=== PATIENT | female | born 1960 | race Caucasian/White ===

== ENCOUNTER → 2020-03-06 13:11 | Outpatient (CLI) | payer OTHER, SELFPAY ==
--- NOTE | ~2020-03-06 | XR_ITS ---
EXAMINATION: XR chest 2V EXAM DATE: 03/06/2020 13:30 INDICATION: R07.81 - Pleurodynia . TECHNIQUE: Frontal and lateral projections of the chest obtained and reviewed. Comparison is made to prior examination from 09/01/2016. FINDINGS: The lungs are clear. There are no pleural effusions. The cardiomediastinal silhouette is within normal limits. There is no pneumothorax suspected. The bones and soft tissues are unremarkab le. IMPRESSION: Unremarkable chest x-ray exam. Reviewed, dictated and finalized at location B. [employer]
== END ==
PROVIDERS: PCP Family Medicine; Visit Provider Nurse Practitioner Family
DX: R07.81 Pleurodynia (principal)
CPT/HCPCS: 71046

== ENCOUNTER 2022-09-10 08:19 | Outpatient (CLI) | payer OTHER, SELFPAY ==
[2022-09-10 08:48] LABS: Hematocrit 42.6 % (37.0-47.0); Hemoglobin 13.9 g/dL (12.0-15.0)
== END 2022-09-10 08:20 | disposition home or self-care (01) ==
LOC: ANHSURGERY 08:25
PROVIDERS: PCP Physician Assistant; Visit Provider Student in an Organized Health Care Education/Training Program
DX: N95.0 Postmenopausal bleeding (principal); Z01.818 Encounter for other preprocedural examination
CPT/HCPCS: 36415; 85014; 85018

== ENCOUNTER 2022-09-16 01:52 | Day surgery (SDC) | payer OTHER, SELFPAY ==
[2022-09-09 13:04] VITALS: BMI 40.1
--- NOTE | 2022-09-09 13:11 | PC.NURSE ---
Addendum entered by She Limon RN 09/15/22 15:13: PT TO ARRIVE AT 0830 ON 09/16/22 FOR SURGERY AT 1030. Original Note: Report to the Outpatient Waiting Room, entrance under the green pavilion located off [facility], at time 11:00 on date 09/17/22. Planned Procedure Time: 1:00. Time changes happen often and if your time is changed the preop area will call you the afternoon before. - You and your visitor will be asked to self-screen and do not enter if you have any COVID symptoms. - A mask is optional within the hospital at this time. Patients may have clear liquids (water, carbonated beverages, clear teas, apple juice) until 3 hours prior to surgery with a maximum of 20 ounces. - No food from midnight until time of surgery Take the following medications with a SIP of water the morning of surgery: NONE DO NOT STOP ANY OF YOUR OTHER PRESCRIPTION MEDICATIONS PRIOR TO SURGERY?EXCEPT THE FOLLOWING Medications to discontinue per physician: VITAMINS Date to take last dose: 09/13/[address] EPSTEIN REGARDING ASPIRIN Please no make-up, nail peruvian, hairspray, perfume, deodorant, or body powder the day of surgery. No jewelry (including any body piercings) or valuables the day of surgery, leave them at home. Please take a shower or bath the night before, or the morning of, surgery with an antibacterial soap. Wear comfortable, loose fitting clothing. - Jewelry must be removed prior to entering the operating room. Rings and piercings that are not removed may be cut off. - The hospital will not accept responsibility for valuables. - Please leave all valuables, including medications, at home the day of surgery. If you are going home after surgery, a licensed power truck driver must drive you home. - NO public transportation without another adult if you receive anesthesia. - We recommend that an adult stay with you for 24 hours following discharge. - We also recommend that you do not drive, make important decision, drink alcoholic beverages, or take any drugs that were not prescribed by your health care provider for at least 24 hours after your discharge time. Follow any additional instructions given to you from your surgeon. If you or anyone in your household have experienced Covid symptoms in the past week, please notify your surgeon or the nurse liaison at the phone number below for possible testing. Telephone instructions given to PT - DELORES CASTRO and asked if any additional questions and then verbalized understanding. Patient advised to call surgeon office or pre surgery nurse liaison [phone] if any additional questions.
--- NOTE | 2022-09-15 15:14 | PC.NURSE ---
Pt states no changes in medications or health history since initial interview. New pre-op instructions reviewed with pt. Pt denies further questions at this time.
--- NOTE | 2022-09-15 17:02 | PM.IMHP ---
H&P: HPI History of Present Illness Date/Time: 09/15/22 17:02 Chief Complaint: postmenopausal bleeding thickened endometrial lining Narrative: 62-year-old female who presents for hysteroscopy D&C for postmenopausal bleeding and thickened endometrial lining. Patient presented to the office after a prolonged episode of postmenopausal bleeding. Patient had pelvic ultrasound which showed thickened endometrial lining. Recommended hysteroscopy D&C for tissue sampling. Review of Systems Review of Systems: All systems reviewed & are unremarkable except as noted in HPI and below PMFSH Past Medical History Medical History Adrenal gland disorder Allergies Asthma BMI 38.0-38.9,adult Surgical History Surgical History H/O colonoscopy 2019 rpt 5 yrs History of carpal tunnel release of both wrists Hx of cataract surgery Family History Family History Mother Family history of diabetes mellitus in first degree relative Hypertension Family history of cardiovascular disease Diabetes mellitus Father Family history of cardiovascular disease, Onset Age: 85 Social History Social History Smoking status: Never smoker Second hand tobacco smoke exposure: No Alcohol intake: never Alcohol use details: occasional Substance use: never Substance use type: does not use Living arrangements: with family Occupation/Education: retired Gender identity (if verbalized by the patient): Female Sexual Orientation (if Verbalized by the Patient): Straight or Heterosexual Spiritual care concerns: No Agree to blood products: Yes Meds Home Medications and Allergies Home Medications Medication Instructions Recorded Confirmed Type atorvastatin 20 mg tablet 20 mg PO HS 08/19/22 09/15/22 History aspirin 81 mg tablet,delayed 81 mg PO DAILY 09/09/22 09/15/22 History release multivitamin 1 tablet PO DAILY 09/09/22 09/15/22 History Allergies Allergy/AdvReac Type Severity Reaction Status Date / Time codeine Allergy Mild Itching Verified 09/15/22 15:13 Exam Const: General: cooperative, healthy appearing, comfortable and no acute distress Chest: Chest palpation & inspection: normal inspection of the chest Resp: Effort & Inspection: normal respiratory effort and able to speak in complete sentences Cardio: Rate: regular rate Rhythm: regular rhythm GI: Inspection: normal to inspection GI Palp: No abdominal tenderness and Yes Soft to palpation Psych: Appearance: grossly normal Mental Status: mental status grossly normal Assessment and Plan Assessment and plan (1) Postmenopausal bleeding: Code(s): N95.0 - Postmenopausal bleeding Status: Acute Assessment and Plan: ?62-year-old female who presents for follow-up regarding postmenopausal bleeding ?? Pelvic ultrasound showed a?new diagnosis of a thickened endometrial lining of 11 mm in the setting of postmenopausal Patient has not had any continued postmenopausal bleeding Given the thickened endometrial lining and age, would recommend tissue sampling ?recommended hysteroscopy, D&C for tissue sampling ?extensive surgical counseling to discuss Risks, benefits, alternatives of procedure? was discussed Patient was consented for hysteroscopy D&C
--- NOTE | 2022-09-16 07:12 | WPDHPUPDATE1 ---
History and Physical Update Update Date/Time: 09/16/22 07:12 History and Physical has been reviewed, including an updated exam of the patient. There are NO changes in the patient's condition. Risks, benefits, and alternatives have been discussed and questions answered. Patient agrees to proceed with procedure.
--- NOTE | 2022-09-16 07:13 | WPDHPUPDATE1 ---
History and Physical Update Update Date/Time: 09/16/22 07:13 History and Physical has been reviewed, including an updated exam of the patient. There are NO changes in the patient's condition. Risks, benefits, and alternatives have been discussed and questions answered. Patient agrees to proceed with procedure.
[2022-09-16 08:53] VITALS: BP 122/66; PULSE 67; RESP 18; TEMP 36.2; O2SAT 98
--- NOTE | 2022-09-16 09:18 | WPDANESEPPF ---
Anes - Initial Pre Proc Eval Procedure: Operation Date: 09/16/22 10:30 Proposed Procedures p Hysteroscopy Dilation and Curettage - Paul Hooper MD Date/Time: 09/16/22 09:18 Surgeon: Paul Hooper MD Pre Op Diagnosis: post menopausal bleeding Patient Data Age: 62 Gender: F Height: 1.61 m Weight: 99.5 kg Last Vital Signs Temp 97.2 F L 09/16/22 08:53 Pulse 67 09/16/22 08:53 Resp 18 09/16/22 08:53 BP 122/66 09/16/22 08:53 Pulse Ox 98 09/16/22 08:53 O2 Del Method Room Air 09/16/22 08:53 Allergies Allergy/AdvReac Type Severity Reaction Status Date / Time codeine Allergy Mild Itching Verified 09/16/22 09:10 Home Medications Medication Instructions Recorded Confirmed Type atorvastatin 20 mg tablet 20 mg PO HS 08/19/22 09/16/22 History aspirin 81 mg tablet,delayed 81 mg PO DAILY 09/09/22 09/16/22 History release multivitamin 1 tablet PO DAILY 09/09/22 09/16/22 History Patient hx anesthesia problems: none Family hx anesthesia problems: none Results Review: All pre-operative results and documents have been reviewed as part of the pre-operative evaluation. [facility] [place] Past Medical History Medical History Adrenal gland disorder Allergies Asthma BMI 38.0-38.9,adult Surgical History Surgical History H/O colonoscopy 2019 rpt 5 yrs History of carpal tunnel release of both wrists Hx of cataract surgery Family History Family History Mother Family history of diabetes mellitus in first degree relative Hypertension Family history of cardiovascular disease Diabetes mellitus Father Family history of cardiovascular disease, Onset Age: 85 Social History Social History Smoking status: Never smoker Second hand tobacco smoke exposure: No Alcohol intake: never Alcohol use details: occasional Substance use: never Substance use type: does not use Living arrangements: with family Occupation/Education: retired Gender identity (if verbalized by the patient): Female Sexual Orientation (if Verbalized by the Patient): Straight or Heterosexual Spiritual care concerns: No Agree to blood products: Yes Anes - Eval Final PreProcedure Day of Procedure 09/16/22 09:18 Patient weight: obese Heart: regular rate and rhythm Lungs: clear to auscultation Airway: Mallampati scale class III Neurological: alert and oriented Last oral intake: >/= 8 hours ASA classification: III Emergent: no Anesthetic plan: proceed Anesthesia type and monitoring: general GIVS and standard monitoring Results Review: All pre-operative results and documents have been reviewed as part of the pre-operative evaluation. Informed Consent: The patient's anesthetic plan and its attendant risks and benefits were discussed with the patient/family/POA. Questions were solicited and answers provided to the satisfaction of the patient/family/POA.
[2022-09-16] MEDS: LACTATED RINGERS 1,000 ML 30 ML IV CONT (09:23)
[2022-09-16] MEDS: ACETAMINOPHEN 500 MG TABLET 1000 MG PO (09:24)
[2022-09-16] MEDS: KETOROLAC 15 MG/ML VIAL (*BKC) IV PUSH (11:00)
[2022-09-16 11:09] VITALS: BP 106/53; PULSE 67; RESP 16; O2SAT 93
--- NOTE | 2022-09-16 11:19 | W.PM.PROC2 ---
Procedure Note - Detailed Date of Procedure 09/16/22 Pre-op Diagnosis 1. post menopausal bleeding Post-op Diagnosis Same (2. Endometrial polyp) Procedure Performed 1. Hysteroscopy with polypectomy 2. Uterine curettings (scant) Surgeon Paul Hooper MD Anesthesia MAC Findings Atrophic endometrial cavity with endometrial polyp Description of Procedure Patient prepped draped usual manner for this procedure. Cervix dilated to allow the hysteroscope to placed which did reveal endometrial polyp which filling the entirety of the cavity of the canal. Hysteroscopic resection of the polyp was undertaken without difficulty. Curettings were then obtained of the entire cavity though there was scant tissue noted. There was no bleeding at this point the procedure was considered terminated the patient was sent to recovery room in stable condition. Estimated Blood Loss -5.0 Drains No Packing No Pathology Yes Complications No immediate complications Condition Stable Disposition PACU [facility] Billing Surgery - Charge Forward: Surgery Billing
[2022-09-16 11:30] VITALS: BP 128/70; PULSE 70; RESP 20
[2022-09-16 11:55] VITALS: BP 122/68; PULSE 72; RESP 20
== END 2022-09-16 11:58 | disposition home or self-care (01) ==
PROVIDERS: PCP Physician Assistant; Visit Provider Obstetrics & Gynecology
PROC: 0U5B8ZZ Destruction of Endometrium, Via Natural or Artificial Opening Endoscopic (ICD-10-PCS; CPT 58563; principal; 2022-09-16 10:30)
DX: N95.0 Postmenopausal bleeding (principal); N84.0 Polyp of corpus uteri
CPT/HCPCS: 58558; 36415; 85014; 85018; 88305; A9270; J1885; J2250; J2405; J2704; J3010; J7120